=== PATIENT | female | born 1960 | race Caucasian/White ===

== ENCOUNTER 2016-09-21 00:25 | Emergency (ER) | payer SELFPAY ==
[2016-09-21 01:31] LABS: BASOPHILS 0.2 % (0.0-2.0); EOSINOPHILS 3.3 % (0.0-6.0); EOSINOPHILS# 0.5 X 10^3uL (0.0-0.4); HEMOGLOBIN 14.2 g/dL (12.0-16.0); LYMPHOCYTES 11.3 % (20.0-40.0); LYMPHOCYTES# 1.6 X 10^3uL (0.8-3.8); MEAN CELL VOLUME 80.5 fL (80.0-100.0); MEAN CORPUS. HGB CONCENTRATION 33.1 g/dL (32.0-36.0); MEAN CORPUSCULAR HEMOGLOBIN 26.6 pg (29.0-35.0); MEAN PLATELET VOLUME 8.4 fL (7.4-10.4); MONOCYTES 6.6 % (2.0-10.0); MONOCYTES# 0.9 X 10^3uL (0.2-1.0); NEUTROPHILS 78.6 % (54.0-75.0); NEUTROPHILS# 10.9 X 10^3uL (2.6-6.7); PLATELET COUNT 302 X 10^3uL (130-440); RED BLOOD COUNT 5.34 X 10^6uL (4.20-6.10); RED CELL DISTRIBUTION WIDTH 13.5 % (11.5-14.5); WHITE BLOOD COUNT 13.9 X 10^3uL (3.9-10.7)
[2016-09-21] MEDS ORDERED: ONDANSETRON HCL 4 MG/2 ML VIAL ONE (01:34)
[2016-09-21 01:40] LABS: A/G RATIO 1.2; ALBUMIN 4.5 g/dL (3.5-5.0); ALKALINE PHOSPHATASE 124 U/L (38-126); ALT 43 U/L (9-52); AST 34 U/L (14-36); BILIRUBIN, TOTAL 0.7 mg/dL (0.2-1.3); BLOOD UREA NITROGEN 15 mg/dL (7-17); C-REACTIVE PROTEIN 8.8 mg/L (<10.0); CALCIUM 10.1 mg/dL (8.4-10.2); CHLORIDE 103 mmol/L (98-107); EST GLOMERULAR FILTRATION RATE > 60 mL/min; GLUCOSE 126 mg/dL (70-100); POTASSIUM 3.8 mmol/L (3.5-5.1); SODIUM 142 mmol/L (137-145); TOTAL PROTEIN 8.3 g/dL (6.3-8.2)
[2016-09-21] MEDS ORDERED: LEVOFLOXACIN 250 MG TABLET ONE (02:13)
--- NOTE | 2016-09-21 02:55 | ER PHYSICIAN DOCUMENTATION ---
Physician Documentation [facility] Name:Jennifer Crump Age:55 yrs Sex:Female :1960 Arrival Date:09/21/2016 Time:00:23 Bed3 Private MD: Harpal Ledesma Disposition: 09/21/16 01:50 Discharged to Home/Self Care. Impression: Traveller's Diarrhea. - Condition is Good. - Discharge Instructions: TRAVELER'S DIARRHEA (7y-Adult). - Prescriptions for Levaquin 500 mg Oral - take 1 tablet by ORAL route once daily for 2 days; 10 tablet. - Medical Reconciliation form form. - Follow up: Private Physician; When: As needed; Reason: Recheck today's complaints. - Problem is new. - Symptoms have improved. HPI: 09/21 01:41 This 55 yrs old Female presents to ER via Walk In with complaints of be Abdominal Pain. 01:41 The patient presents with 20-30 loose, non-bloody stools past 8 hours; exposed to be diarrhea with young son on current cross country trip. Associated signs and symptoms: Pertinent negatives: blood in stools, fever, hematuria, vomiting. This patient does not have any risk factors related to abdominal pain. The patient has not experienced similar symptoms in the past. 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 Lisinopril Oral 2. Prilosec Oral - PMHx: Hypertension; - PSHx: Knee surgery; Tonsillectomy; Hysterectomy; - Tetanus: < 10 years. - Ebola Screening: : Patient denies exposure to infectious person. Patient denies travel to an Ebola-affected area in the 21 days before illness onset. . - Immunization history: Flu Vaccine < 1 year. - Social history: Smoking status: Patient states was never smoker of tobacco. Patient/guardian denies using alcohol. - Code Status:: Full code. ROS: 01:43 Abdomen/GI: Negative for abdominal pain, vomiting, abdominal distension, black/tarry be stool. 01:43 All other systems are negative. Exam: 01:44 Constitutional: This is a well developed, well nourished patient who is awake, alert, be and in mild distress. Head/Face: Normocephalic, atraumatic. Eyes: Pupils equal round and reactive to light, extra-ocular motions intact. Lids and lashes normal. Conjunctiva and sclera are non-icteric and not injected. Cornea within normal limits. Periorbital areas with no swelling, redness, or edema. Neck: Trachea midline, no thyromegaly or masses palpated, and no cervical lymphadenopathy. Supple, full range of motion without nuchal rigidity, or vertebral point tenderness. No Meningismus. 01:44 Back: No spinal tenderness. No costovertebral tenderness. Full range of motion. be 01:44 Cardiovascular: Rate: normal, Rhythm: regular. 01:44 Respiratory: the patient does not display signs of respiratory distress, Respirations: normal, Breath sounds: are normal. 01:44 Abdomen/GI: Palpation: abdomen is soft and non-tender, in all quadrants, mass, is not appreciated. 01:44 : Exam negative for acute changes, CVA tenderness, is absent. Vital Signs: 00:33 BP 108 / 72 LA Sitting (auto/reg); Pulse 95 RA; Resp 16 S; Temp 98.3(O); Pulse Ox 92% em3 on R/A; Weight 95.25 kg (R); Height 5 ft. 9 in. (175.26 cm) (R); Pain 6/10; 01:41 BP 127 / 58; Pulse 90; Resp 16; Pulse Ox 92% on R/A; lb 02:54 BP 107 / 58; Pulse 74; Resp 14; Pulse Ox 93% on R/A; Pain 0/10; lb 00:33 Body Mass Index 31.01 (95.25 kg, 175.26 cm) em3 MDM: 00:36 Patient medically screened. be 01:46 Differential diagnosis: gastritis, traveler's diarrhea. be 03:06 Data reviewed: and as a result, I will discharge patient, administer antibiotics be Levaquin, administer IV fluids, NS bolus, zofran. 09/21 01:33 Order name: CBC AUTO DIF, MDIF/RMOR IF IND; Complete Time: 01:49 EDMS 09/21 01:48 Interpretation: Normal Except: Leukocytosis with left shift and polycythemia. be 09/21 01:37 Order name: LACTATE; Complete Time: 01:49 EDMS 09/21 01:48 Interpretation: Abnormal. be 09/21 01:41 Order name: COMPREHENSIVE METABOLIC PANEL; Complete Time: 01:49 EDUT 09/21 01:48 Interpretation: Normal Except: hyperglycemia. be 09/21 01:41 Order name: C-REACTIVE PROTEIN; Complete Time: 01:49 EDUT 09/21 01:48 Interpretation: Abnormal. be Dispensed Medications: 01:27 Drug: NS 0.9% 2000 ml; Route: IV; Rate: bolus; Site: left antecubital; lb 02:53 Follow up: IV Status: Completed infusion; IV Intake: 2000ml lb 01:27 Drug: Zofran 8 mg; Route: IVP; Infused Over: 2 mins; Site: left antecubital; lb 01:51 Follow up: Response: Nausea is decreased lb 02:53 Drug: Levaquin 500 mg; Route: PO; lb 02:53 Follow up: Response: Dispensed at discharge. lb Signatures: Harpal Ventura MD MD be Bollock, Lynda lb
--- NOTE | 2016-09-21 02:55 | ER NURSING DOCUMENTATION ---
Nurse's Notes [facility] Name:Jennifer Crump Age:55 yrs Sex:Female :1960 Arrival Date:09/21/2016 Time:00:23 Bed3 Private MD: Diagnosis:Traveller's Diarrhea Presentation: 09/21 00:42 Presenting complaint: Patient states: diarrhea and abd pain tonight with nausea. took lb immodium at home without relief. Transition of care: Home. Notified ED Physician of Dr. Ventura notified. 00:42 Acuity: FEI 3 lb 00:42 Method Of Arrival: Walk In lb Triage Assessment: 00:44 General: Appears distressed, uncomfortable, Behavior is appropriate for age, pleasant. lb Pain: Complains of pain in abdomen Pain does not radiate. Pain currently is 6 out of 10 on a pain scale. EENT: No deficits noted. Neuro: No deficits noted. Cardiovascular: No deficits noted. Respiratory: No deficits noted. GI: Abdomen is obese, Bowel sounds present X 4 quads. Reports diarrhea, nausea. 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 Lisinopril Oral 2. Prilosec Oral - PMHx: Hypertension; - PSHx: Knee surgery; Tonsillectomy; Hysterectomy; - Tetanus: < 10 years. - Ebola Screening: : Patient denies exposure to infectious person. Patient denies travel to an Ebola-affected area in the 21 days before illness onset. . - Immunization history: Flu Vaccine < 1 year. - Social history: Smoking status: Patient states was never smoker of tobacco. Patient/guardian denies using alcohol. - Code Status:: Full code. Screenin:46 Infectious Disease Risk None. Abuse screen: Denies threats or abuse. Denies injuries lb from another. Nutritional screening: No deficits noted. Assessment: 00:46 See Triage Assessment done by same RN. GI: Abdomen is obese, Abd is soft X 4 quads. lb Vital Signs: 00:33 BP 108 / 72 LA Sitting (auto/reg); Pulse 95 RA; Resp 16 S; Temp 98.3(O); Pulse Ox 92% em3 on R/A; Weight 95.25 kg (R); Height 5 ft. 9 in. (175.26 cm) (R); Pain 6/10; 01:41 BP 127 / 58; Pulse 90; Resp 16; Pulse Ox 92% on R/A; lb 02:54 BP 107 / 58; Pulse 74; Resp 14; Pulse Ox 93% on R/A; Pain 0/10; lb 00:33 Body Mass Index 31.01 (95.25 kg, 175.26 cm) em3 ED Course: 00:23 Patient arrived in ED. em3 00:35 Valuables Remains with patient Patient has correct armband on for positive em3 identification. Placed in gown. Bed in low position. Call light in reach. Side rails up X2. 00:36 Harpal Ventura MD is Attending Physician. be 00:42 Celi Pereyra is Primary Nurse. lb 00:42 Triage completed. lb 00:[address] Ventura. lb Administered Medications: 01:27 Drug: NS 0.9% 2000 ml; Route: IV; Rate: bolus; Site: left antecubital; lb 02:53 Follow up: IV Status: Completed infusion; IV Intake: 2000ml lb 01:27 Drug: Zofran 8 mg; Route: IVP; Infused Over: 2 mins; Site: left antecubital; lb 01:51 Follow up: Response: Nausea is decreased lb 02:53 Drug: Levaquin 500 mg; Route: PO; lb 02:53 Follow up: Response: Dispensed at discharge. lb Intake: 02:53 IV: 2000ml; Total: 2000ml. lb Outcome: 01:50 Discharge ordered by . be 02:54 Discharged to [place] lb 02:54 Condition: stable 02:54 Discharge Assessment: Patient awake, alert and oriented x 3. No cognitive and/or functional deficits noted. Patient verbalized understanding of disposition instructions. 02:54 Instructed on discharge instructions, follow up and referral plans. 02:54 IV D/Frandy 02:54 Patient left the ED. lb 08:31 Discharge F/U Call: Spoke with: spouse with permission of patient. 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 Signatures: Kaye Jenkins, RN RN st Harpal Ventura MD MD be Meiklejohn, Eric em3 Hafsa Celi lb
== END 2016-09-21 02:55 | disposition home or self-care (01) ==
LOC: ER 00:25
DX: A09 Infectious gastroenteritis and colitis, unspecified (principal); I10 Essential (primary) hypertension; Z79.899 Other long term (current) drug therapy
CPT/HCPCS: 80053; 83605; 85025; 86140; 96361; 96374; 99283; J2405